=== PATIENT | female | born 1945 | race Two or more races ===

== ENCOUNTER → 2023-03-19 | Day surgery (SDC) | payer OTHER ==
[~2023-03-19] VITALS: Ht 152.4 cm; Wt 60.8 kg
[~2023-03-19] MED LIST: GLUMETZA500 MG PO; LIPIT PO; LOSAR PO; PROTON PO
== END | disposition home or self-care (01) ==
LOC: ADM 03-17 15:00 → CIR.AMB 05:58
PROVIDERS: ATTEND Surgery
DX: C50.211 Malignant neoplasm of upper-inner quadrant of right female breast (principal); R92.1 Mammographic calcification found on diagnostic imaging of breast; R59.0 Localized enlarged lymph nodes; Z20.822 Contact with and (suspected) exposure to COVID-19; I10 Essential (primary) hypertension; E04.1 Nontoxic single thyroid nodule
CPT/HCPCS: 19301; 38525; 38792; 19281; A9541; L8699